=== PATIENT | female | born 1980 | race Caucasian/White ===

== ENCOUNTER 2017-01-02 04:15 | Inpatient (IN) | payer OTHER ==
[2017-01-02] MEDS: OXYTOCIN 20 UNITS in 0.9% NS 1,000 ML IV SCH ×2 (05:05→06:25)
--- NOTE | 2017-01-02 05:13 | HP ---
Admitting History and Physical - Admission Chief Complaint: 36 y/o with prior cs for twins comes 8-9cm History of Present Illness: as above, pt of [facility] comes in labor. She is gbs neg, hiv neg, rubella immune. 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: CVA, Dementia, Migraine, Multiple Sclerosis, Peripheral Neuropathy, Parkinson's, Seizure, Syncope, TIA, Vertigo, Other Cardiovascular: No: AFIB, Aneurysm, Aortic Insufficiency, Aortic Stenosis, CAD, CHF, Deep Vein Thrombosis, HTN, Hyperlipdemia, VA, Mitral Insufficiency, Mitral Stenosis, Murmur, Pulmonary Hypertension, Other Pulmonary: No: Asthma, Bronchitis, Cancer, COPD, O2 Dependent, Pneumonia, Previously Intubated, Pulmonary Embolus, Pulmonary Fibrosis, Sleep Apnea, Other Gastrointestinal: No: Ascites, Cancer, Constipation, Crohn's Disease, Diverticulitis, Diverticulosis, Esophageal Varices, Gastritis, GERD, GI Bleed, Hemorrhoids, Hiatal Hernia, Inflamatory Bowel Disease, Irritable Bowel Disease, Pancreatitis, Peptic Ulcer Disease, Ulcerative Colitis, Other Hepatobiliary: No: Cirrhosis, Cholelithiasis, Cholecystitis, Choledocholithiasis , Hepatitis A, Hepatitis B, Hepatitis C, Other Reproductive: No: Ectopic , Endometriosis, Fibroids, PID, Polycystic Ovary Syndrome, Postmenopausal, Other Heme/Onc: No: Anemia, B12 Deficiency, Bleeding Disorder, Cancer, Current Chemotherapy, Current Radiation Therapy, Hemochromatosis, Hypercoaguable State, Myeloproliferative Synd, Sickle Cell Disease, Sickle Cell Trait, Thrombocytopenia, Other Infectious Disease: No: AIDS, C-Diff, Herpes Zoster, HIV, MRSA, STD's, Tuberculosis, VREF, Other Psych: No: Addictions, Anxiety, Bipolar, Depression, Panic, Psychosis, Schizophrenia, Other Musculoskeletal: No: Bursitis, Chronic low back pain, Hemiparesis, Hemiplegia, Osteoarthritis, Paraplegia, Other Rheumatology: No: Fibromyalgia, Gout, Lupus, Rheumatoid Arthritis, Sarcoidosis, Vasculitis, Other ENT: No: Allergic Rhinitis, Sinusitis, Other Endocrine: No: Zaheer's Disease, Surya's Disease, Diabetes Insipidus, Diabetes Mellitus, Hyperparathyroidism, Hyperthyroidism, Hypothyroidism, Osteopenia, SIADH, Other Dermatology: No: Basal Cell, Cellulitis, Eczema, Melanoma, Psoriasis, Squamous Cell, Other - Past Surgical History Past Surgical History: No: None, AAA Repair, AICD, Amputation, Appendectomy, Arthrosocopy, AV Fistula/Graft, Bariatric Surgery, Breast Biopsy, Bypass, CABG, Carotid Endarterectomy, Cataract Removal, Cholecystectomy, Colectomy, Colonoscopy, Colostomy, Craniotomy, , Cystectomy, Hernia Repair, Hysterectomy, Ileal Conduit, Ileosotomy, Joint Replacement, Kidney Transplant, Laminectomy, Liver Transplant, Mastectomy, Nephrectomy, Oopherectomy, Orchiectomy, Permanent Pacemaker, Prostatectomy, Splenectomy, Stent, Thoracotomy , TURP, Tonsillectomy, Tubal Ligation, Upper Endoscopy, Valve Replacement, Vasectomy, Vein Stripping/Ligation - Advance Directives Advance Directives: No: Living Will, Health Care Proxy, DNR, Organ Donor, Tissue Donor, MOLST - Smoking History Smoking history: Never smoked Have you smoked in the past 12 months: No Aproximately how many cigarettes per day: 0 - Alcohol/Substance Use Hx Alcohol Use: No History of Substance Use: reports: None. denies: Cocaine, Heroin, Marijuana, Prescription, Tranquilizers - Social History Usual Living Arrangement: No: Alone, With Spouse, With Parent, With Significant Other, With Child, Assisted Living, [facility], Other History of Recent Travel: No Home Medications - Allergies Allergies/Adverse Reactions: Allergies Allergy/AdvReac Type Severity Reaction Status Date / Time No Known Allergies Allergy Verified 09/05/14 09:42 - Home Medications Home Medications: Ambulatory Orders Pnv95/Ferrous Fumarate/FA [ Tablet] 1 each PO DAILY 12/06/12 Acetaminophen [Tylenol .Regular Strength -] 650 mg PO Q4H PRN #20 tablet Ibuprofen [Motrin -] 600 mg PO Q4H PRN #20 tablet 09/18/14 Review of Systems - Review of Systems Constitutional: reports: No Symptoms Eyes: reports: No Symptoms HENT: reports: No Symptoms Neck: reports: No Symptoms Cardiovascular: reports: No Symptoms Respiratory: reports: No Symptoms Gastrointestinal: reports: No Symptoms Genitourinary: reports: No Symptoms Breasts: reports: No Symptoms Reported Musculoskeletal: reports: No Symptoms Integumentary: reports: No Symptoms Neurological: reports: No Symptoms Endocrine: reports: No Symptoms Hematology/Lymphatic: reports: No Symptoms Psychiatric: reports: No Symptoms Physical Examination Constitutional: Yes: Well Nourished Eyes: Yes: WNL HENT: Yes: WNL Neck: Yes: WNL Cardiovascular: Yes: WNL Respiratory: Yes: WNL Gastrointestinal: Yes: WNL ...Rectal Exam: Yes: WNL Renal/: Yes: WNL Breast(s): Yes: WNL Musculoskeletal: Yes: WNL Neurological: Yes: WNL ...Motor Strength: WNL Psychiatric: Yes: WNL (9cm/100/bulging membranes) Assessment/Plan as above admit labs consents
[2017-01-02] MEDS ORDERED: BENZOCAINE 28 GM HEMORRHOIDAL OINTMENT TP PRN (05:14)
[2017-01-02] MEDS ORDERED: METHYLERGONOVINE MALEATE 0.2 MG/1 ML AMP IM PRN (05:14)
[2017-01-02] MEDS ORDERED: BISACODYL 10 MG SUPP.RECT RC PRN (05:14)
[2017-01-02] MEDS ORDERED: BENZOCAINE 20% 57 GM BOTTLE TP PRN (05:14)
[2017-01-02] MEDS ORDERED: WITCH HAZEL 50% (TUCKS) 40 PAD/JAR PAD TP PRN (05:14)
[2017-01-02] MEDS ORDERED: ELECTROLYTE-148 SOLN 1,000 ML IV SCH (05:15)
[2017-01-02 05:24] LABS: BASOPHIL 0.2 % (0-2.0); EOSINOPHIL 0.8 % (0-4.5); MCH 31.2 pg (25.7-33.7); MCHC 33.9 g/dl (32.0-36.0); MEAN PLT VOLUME 10.4 fl (7.5-11.1); NEUTROPHILS 73.2 % (42.8-82.8); PLATELET COUNT 156 K/MM3 (134-434); RDW 14.6 % (11.6-15.6); WHITE BLOOD COUNT 13.5 K/mm3 (4.0-10.0)
[2017-01-02] MEDS ORDERED: DEXTROSE 5%-LACTATED RINGERS 1,000 ML IV SCH (05:30)
[2017-01-02 05:32] VITALS: BMI 27.6
[2017-01-02 05:37] LABS: INR 0.93 (0.82-1.09); PROTHROMBIN TIME (PATIENT) 10.2 SEC (9.98-11.88)
[2017-01-02 05:40] LABS: ACTIVATED PTT 28.6 SECONDS (26.9-34.4)
[2017-01-02 05:48] LABS: CALCIUM 8.4 mg/dL (8.5-10.1); CREATININE 0.6 mg/dL (0.55-1.02)
[2017-01-02] MEDS: ACETAMINOPHEN 325 MG TABLET (FP) PO PRN (11:07)
[2017-01-02] MEDS: IBUPROFEN 600 MG TABLET (FP) PO PRN (11:08)
[2017-01-03] MEDS: IBUPROFEN 600 MG TABLET (FP) PO PRN ×2 (00:44→21:22)
[2017-01-03] MEDS: ACETAMINOPHEN 325 MG TABLET (FP) PO PRN ×2 (00:45→21:23)
[2017-01-03 08:31] LABS: BASOPHIL 0.1 % (0-2.0); EOSINOPHIL 1.8 % (0-4.5); MCH 31.8 pg (25.7-33.7); MCHC 34.4 g/dl (32.0-36.0); MEAN CELL VOLUME 92.5 fl (80-96); NEUTROPHILS 74.3 % (42.8-82.8); PLATELET COUNT 119 K/MM3 (134-434); RDW 14.5 % (11.6-15.6); WHITE BLOOD COUNT 9.8 K/mm3 (4.0-10.0)
--- NOTE | 2017-01-03 10:59 | PN ---
Progress Note (short form) - Note Progress Note: ppd 1 doing well, no c/o CBC, BMP 01/03/17 07:45 01/02/17 05:05 Last Vital Signs Temp Pulse Resp BP Pulse Ox 98.7 F 88 18 100/78 100 01/03/17 02:00 01/03/17 02:00 01/03/17 02:00 01/03/17 02:00 01/02/17 05:55 uterus firm, non tender , no cva lochia mild no calf tenderness plan for d/c home in am
[2017-01-03] MEDS ORDERED: SENNOSIDES/DOCUSATE COMBO (SENNA PLUS) TABLET (UD) PO PRN (22:00)
--- NOTE | 2017-01-04 08:16 | PN ---
Post Progress Note - Subjective Subjective: no complains Post Day: 2 Type of Delivery: Vital Signs: Vital Signs Temperature 98.6 F 01/03/17 22:00 Pulse Rate 74 01/03/17 22:00 Respiratory Rate 18 01/03/17 22:00 Blood Pressure 103/67 01/03/17 22:00 O2 Sat by Pulse Oximetry (%) 100 01/02/17 05:55 Breast Exam: Yes: Soft, Other (Bf ). No: Engorged Uterus: Yes: Fundus Firm, Fundus below umbilicus Lochia: Yes: Rubra Lochia, amount: Moderate Extremities: Yes: Calves non-tender Perineum: Yes: Intact Activity: Ambulating - Labs Labs: CBC WBC 9.8 K/mm3 (4.0-10.0) 01/03/17 07:45 RBC 3.78 M/mm3 (3.60-5.2) 01/03/17 07:45 Hgb 12.0 GM/dL (10.7-15.3) D 01/03/17 07:45 Hct 35.0 % (32.4-45.2) 01/03/17 07:45 MCV 92.5 fl (80-96) 01/03/17 07:45 MCHC 34.4 g/dl (32.0-36.0) 01/03/17 07:45 RDW 14.5 % (11.6-15.6) 01/03/17 07:45 Plt Count 119 K/MM3 (134-434) L D 01/03/17 07:45 MPV 10.0 fl (7.5-11.1) 01/03/17 07:45 Neutrophils % 74.3 % (42.8-82.8) 01/03/17 07:45 Lymphocytes % 17.4 % (8-40) 01/03/17 07:45 Monocytes % 6.4 % (3.8-10.2) 01/03/17 07:45 Eosinophils % 1.8 % (0-4.5) D 01/03/17 07:45 Basophils % 0.1 % (0-2.0) 01/03/17 07:45 Assessment/Plan stable plan discharge today
[2017-01-04 09:56] VITALS: BP 92/50; PULSE 81; TEMP 98.2
[2017-01-04] MEDS: ACETAMINOPHEN 325 MG TABLET (FP) PO PRN (11:01)
[2017-01-04] MEDS: IBUPROFEN 600 MG TABLET (FP) PO PRN (11:02)
--- NOTE | 2017-03-16 06:54 | DS ---
DATE OF ADMISSION: 01/02/2017 DATE OF DISCHARGE: 01/04/2017 The patient was seen throughout her hospital course, noted to be doing well. There were no issues or concerns. The patient was subsequently discharged home to be followed up in the office. GLORIA GUTIERREZ M.D. C[facility]STINA/[id number]
== END 2017-01-04 12:35 | disposition home or self-care (01) | DRG 775 ==
LOC: JLDR 04:15 → UNDOADMIN 04:45 → JLDR 07:26 → J3W 07:45
PROVIDERS: ADMIT Obstetrics & Gynecology; ATTEND Obstetrics & Gynecology
PROC: 10E0XZZ Delivery of Products of Conception, External Approach (ICD-10-PCS; principal; 2017-01-02)
DX: O34.211 Maternal care for low transverse scar from previous cesarean delivery (principal); O09.523 Supervision of elderly multigravida, third trimester; Z3A.39 39 weeks gestation of pregnancy; Z37.0 Single live birth
CPT/HCPCS: 36415; 59409; 80048; 85025; 85610; 85730; 86593; 86850; 86900; 86901